=== PATIENT | female | born 1960 | race Caucasian/White ===

== ENCOUNTER 2024-10-10 13:36 | Emergency (ER) | payer BC, SELFPAY ==
[2024-10-10] VITALS (11 sets, daily range): BP systolic 88–128; BP diastolic 56–90; PULSE 86–93; BMI 26.4
[2024-10-10 14:05] LABS: % Basophils 0.3 % (0-2); % Eosinophils 6.3 % (0-6); % Immature Granulocytes 2.7 % (0-0.5); % Lymphocytes 18.2 % (20.5-51.1); % Monocytes 6.2 % (1.7-9.3); % Neutrophils 66.3 % (42.2-75.2); Absolute Eosinophils 0.7 10^3/uL (0-0.7); Absolute Immature Granulocytes 0.3 10^3/uL (0-0.05); Absolute Lymphocytes 2.1 10^3/uL (1.2-3.4); Absolute Monocytes 0.7 10^3/uL (0.1-0.6); Absolute Neutrophils 7.5 10^3/uL (1.4-6.5); Hematocrit 31.7 % (37.0-47.0); Hemoglobin 10.7 g/dL (12.0-16.0); Mean Corp Hgb Conc. 33.8 g/dL (33.0-37.0); Mean Corpuscular Hgb 30.8 pg (27.0-31.0); Mean Corpuscular Volume 91.4 fL (81.0-99.0); Mean Platelet Volume 8.8 fL (7.4-10.4); Nucleated Red Blood Cells % 0 %; Platelet Count 513 10^3/uL (130-400); Red Blood Cell Count 3.47 10^6/uL (4.20-5.40); Red Cell Dist. Width 12.4 % (11.5-14.5); White Blood Cell Count 11.3 10^3/uL (4.8-10.8)
[2024-10-10 14:15] LABS: ALT (SGPT) 21 U/L (0-35); AST (SGOT) 22 U/L (14-36); Albumin 3.3 g/dl (3.5-5.0); Alkaline Phosphatase 73 U/L (38-126); Blood Urea Nitrogen 18 mg/dl (7-17); Calcium 8.4 mg/dl (8.4-10.2); Carbon Dioxide 22 mmol/L (22-30); Chloride 103 mmol/L (98-107); Estimated Creatinine Clearance 41 ml/min; Glucose 156 mg/dl (70-99); Sodium 133 mmol/L (135-145); Total Bilirubin 0.6 mg/dl (0.2-1.3); Total Protein 5.7 g/dl (6.3-8.2); eGFR 50.86
[2024-10-10 14:38] LABS: Lipase 65 U/L (23-300)
[2024-10-10] MEDS: NSS 1000 IV (14:45)
[2024-10-10 15:17] LABS: NT-proBNP 37.8 pg/ml; Troponin I < 0.012 ng/ml
--- NOTE | 2024-10-10 16:07 | ED.GENMED ---
History of Present Illness
General
Chief Complaint: Fainting Sensation
Source: patient
Exam Limitations: none
Time Seen by Provider: 10/10/24 15:05
Nursing documentation reviewed up to this point in time: agreed with
History of Present Illness
History of Present Illness:
Patient presents to ED secondary to dizziness, which caused patient to nearly pass out this morning, after having gone to the bathroom numerous times overnight with nonbloody diarrhea. Denies fever or chills. Denies abdominal pain. Denies nausea
or vomiting. Denies chest pain or shortness of breath. Denies recent illness. Denies recent change in medications or diet. Patient was given IV fluids by paramedics, with significant improvement symptoms.
Review of Systems
Review of Systems
Allergies reviewed?: Yes
All Other Systems: ROS reviewed and negative except as documented in HPI and ROS
Constitutional: Reports no symptoms; Denies fever or chills
Respiratory: Reports no symptoms; Denies trouble breathing
Cardiac: Reports no symptoms
ABD/GI: Reports diarrhea; Denies abdominal pain, nausea or vomiting
: Reports no symptoms
Musculoskeletal: Reports no symptoms
Skin: Reports no symptoms
Neurological: Reports dizzy and weakness; Denies headache
Phy Exam
Physical Exam
Physical Exam:
Physical Exam
General: no apparent distress, not acutely ill. afebrile
Head: nc/at. eomi
Neck: supple. normal range of motion.
Heart: s1/s2 regular rate and rhythm, no murmur.
Lungs: no acute respiratory distress. clear bilaterally
Abdomen: normal bowel sounds. not tender.
Neuro: alert and oriented x 3. no focal neurological deficits
Skin: no rash
Psychiatric: well kept. interactive and cooperative
Extremities: no edema. no calf tenderness.
Course
Orders/Labs/Results
Orders:
Orders
10/10/24 13:37
IV Insert/Care/Rem.- Treatment PRN
10/10/24 13:48
Complete Blood Count/With Diff Urgent
Comprehensive Metabolic Panel Urgent
Lipase Urgent
10/10/24 14:45
0.9% Sodium Chloride 1000 ml [Nss] 1,000 ml IV BOLUS
10/10/24 14:46
BNP [NT-proBNP] Urgent
Troponin I Urgent
10/10/24 17:02
Orthostatic VS- Treatment ONCE
Abnormal Lab Results
10/10/24
13:48
WBC 11.3 H 10^3/uL
(4.8-10.8)
RBC 3.47 L 10^6/uL
(4.20-5.40)
Hgb 10.7 L g/dL
(12.0-16.0)
Hct 31.7 L %
(37.0-47.0)
Plt Count 513 H 10^3/uL
(130-400)
Abs Immat Gran (auto) 0.3 H 10^3/uL
(0-0.05)
Absolute Neuts (auto) 7.5 H 10^3/uL
(1.4-6.5)
Absolute Monos (auto) 0.7 H 10^3/uL
(0.1-0.6)
Immature Gran % 2.7 H %
(0-0.5)
Lymphocytes % 18.2 L %
(20.5-51.1)
Eosinophils % 6.3 H %
(0-6)
Sodium 133 L mmol/L
(135-145)
BUN 18 H mg/dl
(7-17)
Creatinine 1.2 H mg/dL
(0.6-1.0)
Glucose 156 H mg/dl
(70-99)
Total Protein 5.7 L g/dl
(6.3-8.2)
Albumin 3.3 L g/dl
(3.5-5.0)
10/10/24 13:48
10/10/24 13:48
Vital Signs
Initial and Last Documented VS:
Initial Vital Signs
Pulse Resp BP Pulse Ox
84 17 88/73 97
10/10/24 13:45 10/10/24 13:45 10/10/24 13:45 10/10/24 13:45
Last Documented Vital Signs
Temp Pulse Resp BP Pulse Ox
97.6 F 93 23 123/68 94
10/10/24 13:46 10/10/24 17:00 10/10/24 17:00 10/10/24 17:00 10/10/24 16:59
MDM/Problems Addressed
MDM/Problems Addressed:
Patient reports significant improvement in symptoms after IV hydration along with sandwich. Afterwards, patient was able to ambulate independently, with steady gait, with negative orthostatic vital signs. At this time, patient feels comfortable
being discharged home, where she will continue hydration along with PCP follow-up as an outpatient.
*Critical Care Note
Total Time (30-74mins, 75-104mins- exclusive of procedures): Not Applicable
ED Attending Note
-
Portions of this chart may have been created with voice recognition software.� Occasional wrong word or��sound alike� substitutions may have occurred due to the inherent limitations of voice recognition software.
Discharge Plan
Departure
Patient Disposition: Home (Routine Discharge)
Date of Disposition: 10/10/24
Time of Disposition: 17:07
Patient with high blood pressure during this ER visit?: Yes
Condition: Good
Discharge Problem:
Diarrhea
Instructions: Diarrhea in adults - ED discharge instructions
Referrals:
UNKNOWN - PT DOES,NOT KNOW [Family Provider] -
Activity Restrictions/Additional Instructions:
As discussed, please follow-up with your primary care physician for reevaluation. In the meantime, recommend continual hydration at home.
Interventions
Interventions:
*Risk Screen - Suicide Last Done: 10/10/24 13:38
*General Assessment Last Done: 10/10/24 13:38
*Neglect/Abuse Screening Last Done: 10/10/24 13:38
ED- Fall Risk Assessment Last Done: 10/10/24 13:38
*ED COVID-19 Vaccine History Last Done: 10/10/24 13:38
*Nursing Disposition Last Done: 10/10/24 17:18
ED- Cardiac Assessment Last Done: 10/10/24 13:38
ED- Neurological Assessment Last Done: 10/10/24 13:38
Discharge Date and Time
Discharge Date/Time: 10/10/24 17:20
Print Language: ETHIOPIAN
== END 2024-10-10 17:20 | disposition home or self-care (01) ==
LOC: EMR 13:36
PROVIDERS: Emergency Medicine; EMERGENCY PHYSICIAN Emergency Medicine
DX: R19.7 Diarrhea, unspecified (principal); R55 Syncope and collapse; I10 Essential (primary) hypertension; F31.9 Bipolar disorder, unspecified
CPT/HCPCS: 99284; 96360; 80053; 83690; 83880; 84484; 85025